=== PATIENT | female | born 1970 ===

== ENCOUNTER → 2024-02-02 09:33 | Outpatient (BNVA) | payer OTHER, SELFPAY | PROVIDERS: PCP Nurse Practitioner Family; Visit Provider Nurse Practitioner Family | DX: I10 Essential (primary) hypertension (principal); E55.9 Vitamin D deficiency, unspecified; E53.8 Deficiency of other specified B group vitamins; R53.83 Other fatigue | CPT/HCPCS: 80053; 80061; 82306; 82607; 82670; 82746; 83001; 83002; 83550; 83735; 84144; 84439; 84443; 85025; 86003; 86008 ==

== ENCOUNTER → 2024-04-04 12:30 | Outpatient (BNVA) | payer OTHER, SELFPAY | PROVIDERS: PCP Nurse Practitioner Family; Visit Provider Nurse Practitioner Family | DX: R30.0 Dysuria (principal) | CPT/HCPCS: 81003; 87086 ==

== ENCOUNTER → 2024-04-11 09:22 | Outpatient (BNVA) | payer OTHER, SELFPAY | PROVIDERS: PCP Nurse Practitioner Family; Visit Provider Nurse Practitioner Family | DX: E03.9 Hypothyroidism, unspecified (principal); E53.8 Deficiency of other specified B group vitamins; E55.9 Vitamin D deficiency, unspecified; R73.9 Hyperglycemia, unspecified | CPT/HCPCS: 80053; 81003; 82306; 82607; 83036; 87086 ==